=== PATIENT | male | born 1980 | race Caucasian/White ===

== ENCOUNTER → 2018-09-20 12:31 | Outpatient (CLI) | payer OTHER, SELFPAY ==
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
== END ==
PROVIDERS: Family Provider Family Medicine; PCP Family Medicine; Referring Provider Podiatrist; Visit Provider Podiatrist
DX: M54.17 Radiculopathy, lumbosacral region (principal); M79.671 Pain in right foot; M79.672 Pain in left foot
CPT/HCPCS: 95886; 95913